=== PATIENT | female | born 1980 | race American Indian/Alaskan Native ===

== ENCOUNTER 2018-09-14 23:31 | Emergency (ER) | payer MEDICAID ==
[2018-09-15 00:46] VITALS: BMI 71.1
[2018-09-15 01:06] LABS: SQUAMOUS EPITHIAL < 1 /hpf (0-5); URINE BILIRUBIN NEGATIVE (NEGATIVE); URINE BLOOD NEGATIVE (NEGATIVE); URINE CLARITY CLEAR (Clear); URINE COLOR STRAW (YELLOW); URINE GLUCOSE (UA) NEG (Normal); URINE LEUKOCYTE ESTERASE NEG Leu/uL (Negative); URINE PROTEIN NEGATIVE (NEGATIVE); URINE UROBILINOGEN 0.2-1.0 mg/dL (0.2-1.0)
[2018-09-15 05:47] VITALS: BP 118/75; PULSE 74; RESP 20; TEMP 98.6; O2SAT 98
== END 2018-09-15 01:25 | disposition home or self-care (01) ==
LOC: H.EROB2 23:31
DX: O26.93 Pregnancy related conditions, unspecified, third trimester (principal); M54.9 Dorsalgia, unspecified; Z3A.29 29 weeks gestation of pregnancy